=== PATIENT | female | born 1975 | race Native Hawaiian/Other Pacific Islander ===

== ENCOUNTER 2017-07-03 13:03 | Outpatient (CLI) | payer OTHER | END 2017-07-03 19:59 | disposition home or self-care (01) | LOC: MAMMO 13:03 | DX: Z12.31 Encounter for screening mammogram for malignant neoplasm of breast (principal) | CPT/HCPCS: G0202-TC ==

== ENCOUNTER 2018-09-10 02:53 | Emergency (ER) | payer OTHER ==
[~2018-09-10] VITALS: Ht 162.6 cm; Wt 50.8 kg
[2018-09-10 04:33] VITALS: BP 113/63; TEMP 98.1
== END 2018-09-10 04:33 | disposition home or self-care (01) ==
LOC: ED 02:53
DX: S42.214A Unspecified nondisplaced fracture of surgical neck of right humerus, initial encounter for closed fracture (principal); S00.83XA Contusion of other part of head, initial encounter; Y04.0XXA Assault by unarmed brawl or fight, initial encounter
CPT/HCPCS: 96374; 99284; J1885

== ENCOUNTER 2021-06-05 10:54 | Outpatient (CLI) | payer OTHER | END 2021-06-05 19:16 | disposition home or self-care (01) | LOC: MAMMO 10:54 | PROVIDERS: ATTEND Internal Medicine | DX: Z12.31 Encounter for screening mammogram for malignant neoplasm of breast (principal) ==